=== PATIENT | female | born 1955 | race Caucasian/White ===

== ENCOUNTER → 2016-09-22 | Outpatient (REF) | payer BC ==
[2016-09-24 00:06] LABS: Lyme Disease IgG/IgM Antibodie <0.91 ISR (0.00-0.90); Lyme Disease IgM Ab Quantitati <0.80 index (0.00-0.79)
== END ==
LOC: M LAB REF 13:24
PROVIDERS: ATTEND Internal Medicine
DX: S20.96XA Insect bite (nonvenomous) of unspecified parts of thorax, initial encounter (principal); X58.XXXA Exposure to other specified factors, initial encounter; Y92.9 Unspecified place or not applicable; Y93.9 Activity, unspecified; Y99.9 Unspecified external cause status

== ENCOUNTER → 2017-02-13 | Outpatient (REF) | payer BC ==
[2017-02-16 00:06] LABS: Lyme Disease IgG/IgM Antibodie <0.91 ISR (0.00-0.90); Lyme Disease IgM Ab Quantitati <0.80 index (0.00-0.79)
== END ==
LOC: M LAB REF 16:53
PROVIDERS: ATTEND Internal Medicine
DX: M25.50 Pain in unspecified joint (principal)

== ENCOUNTER → 2017-09-24 | Outpatient (REF) | payer BC ==
[2017-09-24 13:17] LABS: FERRITIN 121 NG/ML (8-252); IRON (FE) 101 UG/DL (50-170); PERCENT SATURATION 23.9 % (13.2-45.0); TOTAL IRON BINDING CAPACITY 422 UG/DL (250-450)
== END ==
LOC: M LAB REF 12:23
DX: D64.9 Anemia, unspecified (principal)
CPT/HCPCS: 83550

== ENCOUNTER → 2019-01-10 | Outpatient (REF) | payer BC ==
[2019-01-10 19:15] LABS: THYROGLOBULIN ANTIBODY 17.6 U/ML (<60.0)
== END ==
LOC: M LAB REF 18:26
PROVIDERS: ATTEND Internal Medicine
DX: E03.9 Hypothyroidism, unspecified (principal)

== ENCOUNTER → 2020-05-18 | Outpatient (REF) | payer MEDICARE, BC | LOC: M LAB REF 17:56 | PROVIDERS: ATTEND Internal Medicine | DX: D50.9 Iron deficiency anemia, unspecified (principal); R53.83 Other fatigue ==

== ENCOUNTER → 2022-01-06 | Outpatient (CLI) | payer MEDICARE, BC | LOC: M WUC 14:24 | PROVIDERS: ATTEND Physician Assistant | DX: S50.01XA Contusion of right elbow, initial encounter (principal); S70.01XA Contusion of right hip, initial encounter; S80.01XA Contusion of right knee, initial encounter; Z96.641 Presence of right artificial hip joint; M25.761 Osteophyte, right knee; X58.XXXA Exposure to other specified factors, initial encounter; Y92.9 Unspecified place or not applicable; Y93.9 Activity, unspecified; Y99.9 Unspecified external cause status ==

== ENCOUNTER → 2022-04-04 | Outpatient (CLI) | payer MEDICARE, BC | LOC: M WUC 13:07 | PROVIDERS: ATTEND Internal Medicine | DX: R05.9 Cough, unspecified (principal); I70.0 Atherosclerosis of aorta ==

== ENCOUNTER → 2023-09-21 | Outpatient (REF) | payer MEDICARE, BC ==
[2023-09-26 13:27] LABS: LYME TOTAL ANTIBODY CIA 1.66 Index (<=0.90)
[2023-09-26 23:37] LABS: LYME AB IGG BY CIA 5.15 Index (<=0.90); LYME AB IGM BY CIA 5.61 Index (<=0.90)
== END ==
LOC: M LAB REF 16:29
PROVIDERS: ATTEND Internal Medicine
DX: R79.82 Elevated C-reactive protein (CRP) (principal)

== ENCOUNTER → 2024-03-11 | Outpatient (CLI) | payer MEDICARE, BC | LOC: M WUC 11:35 | PROVIDERS: ATTEND Internal Medicine | DX: Z01.818 Encounter for other preprocedural examination (principal); R05.9 Cough, unspecified ==

== ENCOUNTER → 2024-07-08 | Outpatient (CLI) | payer MEDICARE, BC | LOC: M WUC 12:44 | PROVIDERS: ATTEND Internal Medicine | DX: R07.81 Pleurodynia (principal); R05.9 Cough, unspecified; Z53.9 Procedure and treatment not carried out, unspecified reason ==

== ENCOUNTER → 2024-07-08 | Outpatient (CLI) | payer MEDICARE, BC | LOC: M RAD 13:46 | PROVIDERS: ATTEND Internal Medicine | DX: R07.81 Pleurodynia (principal); R05.9 Cough, unspecified ==

== ENCOUNTER → 2024-11-07 | Outpatient (CLI) | payer MEDICARE, BC | LOC: M WHC 13:30 | PROVIDERS: ATTEND Internal Medicine | DX: M81.0 Age-related osteoporosis without current pathological fracture (principal) ==

== ENCOUNTER → 2024-12-16 | Outpatient (REF) | payer MEDICARE, BC | LOC: M LAB REF 15:12 | DX: R21 Rash and other nonspecific skin eruption (principal) ==

== ENCOUNTER → 2024-12-25 | Outpatient (CLI) | payer MEDICARE, BC | LOC: M PLAIMG 09:58 | DX: R51.9 Headache, unspecified (principal) ==